=== PATIENT | male | born 1975 | race Caucasian/White ===

== ENCOUNTER 2017-01-31 17:21 | Emergency (ER) | payer SELFPAY ==
[2017-01-31 18:25] VITALS: BP 127/81
--- NOTE | 2017-01-31 18:55 | UC ---
Back Pain HPI - HPI Summary HPI Summary: 41 year old with back pain . left hip pain for past 2 weeks, increase in pain, denies any trauma/injury. Worse in the morning, pain radiates down leg and lower he works in construction and having hard time working. no trauma he states. no gabrielle in the groin. it is in the left back hip and buttock and goes down the left leg at times. no red flags no drop foot. no bowel or bladder concerns. End ] - History of Current Complaint Chief Complaint: UCLowerExtremity Stated Complaint: LEFT HIP PAIN (SHOOTING DOWN LEG) Time Seen by Provider: 01/31/17 18:44 Hx Obtained From: Patient Onset/Duration: Gradual Onset Timing: Constant Severity Initially: Mild Severity Currently: Moderate Character: Spasmodic, Stiffness Aggravating Factor(s): Movement, Lifting Alleviating Factor(s): Rest Associated Signs And Symptoms: Positive: Negative - Allergies/Home Medications Allergies/Adverse Reactions: Allergies Allergy/AdvReac Type Severity Reaction Status Date / Time No Known Allergies Allergy Verified 01/31/17 18:25 PMH/Surg Hx/FS Hx/Imm Hx Previously Healthy: Yes - Surgical History Surgical History: Yes Surgery Procedure, Year, and Place: Cellulitis in right lower leg - Family History Known Family History: Positive: None - Social History Occupation: Employed Full-time Lives: With Family Alcohol Use: Occasionally Substance Use Type: Marijuana Substance Use Comment - Amount & Last Used: smoked Marijuana today Smoking Status (MU): Heavy Every Day Tobacco Smoker Cessation Counseling: Patient Advised to Stop Review of Systems Musculoskeletal: Arthralgia, Decreased ROM Neurological: Paresthesia Is Patient Immunocompromised?: No All Other Systems Reviewed And Are Negative: Yes Physical Exam Triage Information Reviewed: Yes Appearance: Well-Appearing, Pain Distress - mild Vital Signs: Initial Vital Signs Temp 98.6 F 01/31/17 18:19 Pulse 75 01/31/17 18:19 Resp 18 01/31/17 18:19 BP 127/81 01/31/17 18:19 Pulse Ox 100 01/31/17 18:19 Vital Signs Reviewed: Yes Eye Exam: Normal Respiratory Exam: Normal Cardiovascular Exam: Normal Musculoskeletal Exam: Normal Musculoskeletal: Positive: Strength Intact, ROM Limited @, Other: - right piriformis tenderness to palpation. antalgic gait. strength 5/5 in LE b/l and sensation intact. no sp tenderness. no step offs. no paraspinal tenderness in the L spine. no lateral hip tenderness Neurological Exam: Normal Psychological Exam: Normal Skin Exam: Normal Back Pain Course/Dx - Course Course Of Treatment: discussed piriformis syndrome and given exercises to perform at home and also aware if may be herniated disc and to f/u with ortho for further eval. he will try gabapentin at night for raidating pain and start medrol with muscle relaxer and can use NSAIDs prn sparingly with meal. aware of SE of NSAIDs . go to ED if develop any red flags and he is agreeable . - Differential Dx/Diagnosis Differential Diagnosis/HQI/PQRI: Herniated Disc, Strain, Sprain Provider Diagnoses: piriformis syndrome left sided Discharge - Discharge Plan Condition: Good Disposition: HOME Prescriptions: Cyclobenzaprine TAB* [Flexeril 10 MG TAB*] 10 mg PO BID PRN #14 tab PRN Reason: Spasms Gabapentin CAP(*) [Neurontin 100 mg CAP(*)] 100 mg PO TID #30 cap Methylprednisolone [Medrol Dosepak 4 MG*] 0 mg PO .SEE YOSI INSTRUCTION #1 tab Patient Education Materials: Piriformis Syndrome (ED) Referrals: No Primary Care Phys,NOPCP [Medical Doctor] - Additional Instructions: Please look up on YOUTUBE Piriformis stretches and physical therapy
== END 2017-01-31 19:30 | disposition home or self-care (01) ==
LOC: UCCORT 17:21
DX: G57.02 Lesion of sciatic nerve, left lower limb (principal); F12.90 Cannabis use, unspecified, uncomplicated; Z71.6 Tobacco abuse counseling; F17.210 Nicotine dependence, cigarettes, uncomplicated
CPT/HCPCS: 99202; G0463

== ENCOUNTER 2018-12-02 04:32 | Emergency (ER) | payer SELFPAY ==
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
[2018-12-02 05:47] VITALS: BP 119/89
== END 2018-12-02 05:46 ==
LOC: ED 04:32
DX: Z04.1 Encounter for examination and observation following transport accident (principal); V43.52XA Car driver injured in collision with other type car in traffic accident, initial encounter; Y92.410 Unspecified street and highway as the place of occurrence of the external cause; F17.210 Nicotine dependence, cigarettes, uncomplicated
CPT/HCPCS: 99282